=== PATIENT | female | born 1995 | race Caucasian/White ===

== ENCOUNTER 2020-01-02 15:36 | Emergency (ER) | payer MEDICAID, OTHER ==
[~2020-01-02] VITALS: Ht 172.7 cm; Wt 61.2 kg
[2020-01-02 15:45] VITALS: BP 146/90
== END 2020-01-02 17:18 | disposition home or self-care (01) ==
LOC: ER 15:36
DX: S02.2XXA Fracture of nasal bones, initial encounter for closed fracture (principal); F17.210 Nicotine dependence, cigarettes, uncomplicated; W18.00XA Striking against unspecified object with subsequent fall, initial encounter; Y93.89 Activity, other specified; Y92.89 Other specified places as the place of occurrence of the external cause; Y99.8 Other external cause status
CPT/HCPCS: 70486